=== PATIENT | male | born 1960 | race Caucasian/White ===

== ENCOUNTER 2020-09-29 09:35 | Inpatient (IN) ==
[2020-09-29] MEDS ORDERED: NS 0.9% 1000 ml BAG 1,000 ML IV.FLUID IV ONE (09:51)
[2020-09-29 11:00] LABS: ABS Lymphocytes 0.5 10^3/ul (1.0-4.8); ABS Monocytes 0.4 10^3/ul (0-0.8); ABS Neutrophils 5.2 10^3/ul (1.5-7.7); Hematocrit 38 % (42-52); Hemoglobin 12.6 g/dL (14.0-18.0); Lymphocyte % 8.3 %; Mean Corpuscular HGB Conc 33 g/dL (31-36); Mean Corpuscular Hemoglobin 29 pg (27-31); Mean Corpuscular Volume 86 fL (80-94); Mean Platelet Volume 7.4 fL (7.4-10.4); Platelet Count 196 10^3/uL (150-450); Red Blood Count 4.42 10^6 /uL (4.18-5.48); Red Cell Distribution Width 13 % (10-15); White Blood Count 6.1 10^3/uL (3.5-10.8)
[2020-09-29 11:09] LABS: Activated Partial Thrombo Time 29.2 seconds (26.0-38.0); INR 1.18 (0.82-1.09)
[2020-09-29 11:20] LABS: Albumin/Globulin Ratio 1.1 (1-3); BUN/Creatinine Ratio 18.3 (8-20); C Reactive Protein 91.04 mg/L (<8.01); Calcium 8.6 mg/dL (8.6-10.3); EGFR African American 99.6 (>60); EGFR Non-African American 82.3 (>60); Globulin 3.5 g/dL (2-4); Potassium 3.6 mmol/L (3.5-5.0); Total Bilirubin 0.5 mg/dL (0.2-1.0); Total Protein 7.5 g/dL (6.4-8.9)
[2020-09-29] MEDS ORDERED: NS 0.9% 1000 ml BAG 1,000 ML IV SCH (15:30)
[2020-09-29] MEDS ORDERED: Remdesivir 100 mg Vial 200 MG in NS 0.9% 250 ml 210 ML IV ONE (15:30)
[2020-09-29] MEDS: Enoxaparin 40 MG/0.4 ML SYR SUBCUT SCH (16:58)
[2020-09-29] MEDS: cefTRIAXone 1 gm/50 mL NS BAG 1 GM/50 ML BAG IVPB SCH (18:13)
[2020-09-29] MEDS: NS 0.9% 1000 ml BAG 1,000 ML IV SCH (20:30)
[2020-09-29] MEDS: Polyethylene Glycol 3350 17 GM PACKET PO SCH (20:37)
[2020-09-29] MEDS ORDERED: Metoclopramide 5 MG/ML VIAL (10 mg) IV SCH (21:00)
[2020-09-29] MEDS: Metoclopramide 5 MG/ML VIAL (10 mg) IV SCH (22:23)
[2020-09-29] MEDS: Pantoprazole VIAL 40 MG VIAL IV SCH (22:23)
[2020-09-30 01:11] LABS: Urine Appearance Cloudy; Urine Bilirubin Negative (Negative); Urine Blood Negative (Negative); Urine Color Yellow; Urine Glucose Negative (Negative); Urine Ketones 2+ (Negative); Urine Nitrite Negative (Negative); Urine Protein 2+(100 mg/dL) (Negative); Urine Specific Gravity 1.025 (1.010-1.030); Urine Urobilinogen Negative (Negative)
[2020-09-30 01:22] LABS: Urine Bacteria Absent (Absent); Urine Red Blood Cell Absent (Absent); Urine Squamous Epithelial Cell Present (Absent); Urine White Blood Cell Trace(0-5/hpf) (Absent)
[2020-09-30] MEDS: Metoclopramide 5 MG/ML VIAL (10 mg) IV SCH ×3 (04:23→19:56)
[2020-09-30 06:18] LABS: ABS Lymphocytes 0.6 10^3/ul (1.0-4.8); ABS Monocytes 0.4 10^3/ul (0-0.8); ABS Neutrophils 7.9 10^3/ul (1.5-7.7); Hematocrit 35 % (42-52); Hemoglobin 11.6 g/dL (14.0-18.0); Lymphocyte % 6.3 %; Mean Corpuscular HGB Conc 34 g/dL (31-36); Mean Corpuscular Hemoglobin 29 pg (27-31); Mean Corpuscular Volume 87 fL (80-94); Platelet Count 219 10^3/uL (150-450); Red Cell Distribution Width 13 % (10-15); White Blood Count 8.8 10^3/uL (3.5-10.8)
[2020-09-30 06:36] LABS: ALT 34 U/L (7-52); AST 59 U/L (13-39); Albumin 3.6 g/dL (3.2-5.2); Albumin/Globulin Ratio 1.1 (1-3); Alkaline Phosphatase 40 U/L (34-104); Anion Gap 10 mmol/L (2-11); BUN/Creatinine Ratio 13.5 (8-20); Blood Urea Nitrogen 13 mg/dL (6-24); CO2 Carbon Dioxide 25 mmol/L (22-32); Chloride 108 mmol/L (101-111); EGFR Non-African American 79.4 (>60); Globulin 3.2 g/dL (2-4); Glucose 88 mg/dL (70-100); Potassium 4.3 mmol/L (3.5-5.0); Sodium 143 mmol/L (135-145); Total Protein 6.8 g/dL (6.4-8.9)
[2020-09-30 07:06] LABS: Total Iron Binding Capacity 253 mcg/dL (250-450); Transferrin 181 mg/dL (203-362)
[2020-09-30 07:08] LABS: % Iron Saturation 8 % (15-55); Iron < 20 ug/dL (50-212); Unsaturated Iron Binding < 238 ug/dL
[2020-09-30 07:28] LABS: Ferritin 309.3 ng/mL (24-336)
[2020-09-30 07:31] LABS: Folate > 20.00 ng/mL (>3.99)
[2020-09-30 07:32] LABS: Vitamin B12 528 pg/mL (180-914)
[2020-09-30] MEDS: Polyethylene Glycol 3350 17 GM PACKET PO SCH ×2 (09:37→19:56)
[2020-09-30] MEDS: Pantoprazole VIAL 40 MG VIAL IV SCH (09:37)
[2020-09-30] MEDS: cefTRIAXone 1 gm/50 mL NS BAG 1 GM/50 ML BAG IVPB SCH (09:37)
[2020-09-30] MEDS: Linaclotide 290 mcg CAP (NF) PO SCH (09:48)
[2020-09-30] MEDS: Enoxaparin 40 MG/0.4 ML SYR SUBCUT SCH (14:35)
[2020-10-01] MEDS: NS 0.9% 1000 ml BAG 1,000 ML IV SCH (00:38)
[2020-10-01] MEDS: Linaclotide 290 mcg CAP (NF) PO SCH (08:43)
[2020-10-01] MEDS: Polyethylene Glycol 3350 17 GM PACKET PO SCH ×2 (08:44→21:25)
[2020-10-01] MEDS: Enoxaparin 40 MG/0.4 ML SYR SUBCUT SCH (15:04)
[2020-10-01] MEDS ORDERED: Magnesium CITRATE LIQ 300 ML BTL PO PRN (16:06)
[2020-10-02] MEDS: Polyethylene Glycol 3350 17 GM PACKET PO SCH ×2 (07:55→20:47)
[2020-10-02] MEDS: Linaclotide 290 mcg CAP (NF) PO SCH (07:55)
[2020-10-02] MEDS ORDERED: Lactated Ringers 500 ml BAG 250 ML IV ONE (11:30)
[2020-10-02 12:28] LABS: ABS Lymphocytes 0.7 10^3/ul (1.0-4.8); ABS Monocytes 0.3 10^3/ul (0-0.8); ABS Neutrophils 5.8 10^3/ul (1.5-7.7); Eosinophil % 0.3 %; Hematocrit 33 % (42-52); Hemoglobin 11.1 g/dL (14.0-18.0); Mean Corpuscular HGB Conc 33 g/dL (31-36); Mean Corpuscular Hemoglobin 29 pg (27-31); Mean Corpuscular Volume 86 fL (80-94); Mean Platelet Volume 6.7 fL (7.4-10.4); Platelet Count 264 10^3/uL (150-450); Red Blood Count 3.87 10^6 /uL (4.18-5.48); Red Cell Distribution Width 13 % (10-15); White Blood Count 6.8 10^3/uL (3.5-10.8)
[2020-10-02 12:42] LABS: Albumin 3.1 g/dL (3.2-5.2); BUN/Creatinine Ratio 10.1 (8-20); Calcium 8.1 mg/dL (8.6-10.3); EGFR African American 120.3 (>60); EGFR Non-African American 99.4 (>60); Potassium 3.7 mmol/L (3.5-5.0); Total Bilirubin 0.4 mg/dL (0.2-1.0); Total Protein 6.1 g/dL (6.4-8.9)
[2020-10-02] MEDS: Enoxaparin 40 MG/0.4 ML SYR SUBCUT SCH (14:55)
[2020-10-02] MEDS ORDERED: Albuterol/Ipratropium NEB.SOL (2.5/0.5 MG) 3 ML NEB.SOLN INH PRN (22:13)
[2020-10-02] MEDS ORDERED: Albuterol HFA INHALER 8 gm MDI INH PRN (23:48)
[2020-10-03] MEDS: Linaclotide 290 mcg CAP (NF) PO SCH (10:15)
[2020-10-03] MEDS: Polyethylene Glycol 3350 17 GM PACKET PO SCH ×2 (10:15→21:38)
[2020-10-03] MEDS: Enoxaparin 40 MG/0.4 ML SYR SUBCUT SCH (15:04)
[2020-10-04 06:48] LABS: BUN/Creatinine Ratio 10.8 (8-20); Blood Urea Nitrogen 8 mg/dL (6-24); CO2 Carbon Dioxide 25 mmol/L (22-32); Calcium 8.5 mg/dL (8.6-10.3); Chloride 107 mmol/L (101-111); EGFR African American 129.7 (>60); EGFR Non-African American 107.2 (>60); Glucose 90 mg/dL (70-100); Sodium 138 mmol/L (135-145)
[2020-10-04 06:49] LABS: Hematocrit 33 % (42-52); Mean Corpuscular HGB Conc 33 g/dL (31-36); Mean Corpuscular Hemoglobin 29 pg (27-31); Mean Corpuscular Volume 86 fL (80-94); Mean Platelet Volume 7.2 fL (7.4-10.4); Platelet Count 283 10^3/uL (150-450); Red Blood Count 3.87 10^6 /uL (4.18-5.48); Red Cell Distribution Width 13 % (10-15); White Blood Count 8.5 10^3/uL (3.5-10.8)
[2020-10-04 07:11] LABS: Anion Gap 6 mmol/L (2-11)
[2020-10-04] MEDS: Polyethylene Glycol 3350 17 GM PACKET PO SCH (09:30)
[2020-10-04] MEDS: Linaclotide 290 mcg CAP (NF) PO SCH (09:30)
[2020-10-04 12:50] VITALS: BP 87/55
== END 2020-10-04 15:30 | disposition home or self-care (01) | DRG 137 ==
LOC: ED 09:35 → MED 15:19
PROVIDERS: ADMIT Hospitalist; ATTEND Internal Medicine

== ENCOUNTER 2023-08-24 01:26 | Inpatient (IN) ==
[2023-08-24 02:52] LABS: ABS Eosinophils 0.1 10^3/uL (0.0-0.5); ABS Lymphocytes 1.3 10^3/uL (1.0-4.8); ABS Monocytes 0.3 10^3/uL (0.0-1.1); ABS Neutrophils 6.1 10^3/uL (1.5-7.6); Eosinophil % 1.3 %; Hematocrit 35.9 % (38-53); Hemoglobin 12.2 g/dL (13.2-16.3); Lymphocyte % 16.6 %; Mean Corpuscular Volume 85.2 fL (80-97); Mean Platelet Volume 6.6 fL (7.5-11.2); Platelet Count 259 10^3/uL (150-450); Red Blood Count 4.22 10^6/uL (4.06-5.63); Red Cell Distribution Width 13.1 % (12-17); White Blood Count 7.9 10^3/uL (3.6-10.2)
[2023-08-24] MEDS ORDERED: Lactated Ringers 1000 ml BAG 1,000 ML IV SCH (03:00)
[2023-08-24 03:10] LABS: Albumin 3.7 g/dL (3.2-5.2); Albumin/Globulin Ratio 1.5 (1-3); Calcium 8.2 mg/dL (8.6-10.3); Creatinine, Serum 0.8 mg/dL (0.67-1.17); Globulin 2.4 g/dL (2-4); Potassium 4.1 mmol/L (3.5-5.0); Total Bilirubin 0.3 mg/dL (0.2-1.0); Total Protein 6.1 g/dL (6.4-8.9); eGFR CKD-EPI 98.2 (>60)
[2023-08-24] MEDS ORDERED: Morphine 2 MG/ML SYRINGE IV PRN (10:12)
[2023-08-24] MEDS: Acetaminophen IV 1 GM/100ML 1,000 MG/100 ML BAG IV SCH ×3 (10:27→22:41)
[2023-08-24] MEDS: Lactated Ringers 1000 ml BAG 1,000 ML IV SCH ×2 (10:27→19:25)
[2023-08-24] MEDS ORDERED: Midazolam 10 mg/10 ml VIAL 1 mg/ml 10 ml VIAL (10 mg) ONE (11:34)
[2023-08-24] MEDS ORDERED: fentaNYL 100 mcg/2 ml 50 MCG/ML VIAL ONE (11:34)
[2023-08-24] MEDS ORDERED: PEG 3000 GI LAVAGE 1 GALLON PO ONE (14:30)
[2023-08-24] MEDS ORDERED: cefTRIAXone 1 gm/50 mL D5W 1 GM/50 ML BAG IV SCH (19:30)
[2023-08-24] MEDS: Linaclotide 290 mcg CAP (NF) PO SCH (21:59)
[2023-08-24] MEDS: cefTRIAXone 1 gm/50 mL D5W 1 GM/50 ML BAG IV SCH (23:03)
[2023-08-25] MEDS: Acetaminophen IV 1 GM/100ML 1,000 MG/100 ML BAG IV SCH ×3 (05:52→22:22)
[2023-08-25 08:01] LABS: ABS Lymphocytes 0.7 10^3/uL (1.0-4.8); ABS Monocytes 0.6 10^3/uL (0.0-1.1); ABS Neutrophils 6.2 10^3/uL (1.5-7.6); ABS Nucleated RBC 0.01 10^3/ul; Eosinophil % 0.2 %; Hematocrit 37.4 % (38-53); Hemoglobin 12.6 g/dL (13.2-16.3); Lymphocyte % 9.3 %; Mean Corpuscular Hemoglobin 28.9 pg (27-33); Mean Corpuscular Hgb Conc 33.7 g/dL (31-36); Mean Corpuscular Volume 85.7 fL (80-97); Mean Platelet Volume 6.7 fL (7.5-11.2); Nucleated Red Blood Cells % 0.2 %/100WBC (0.0-0.8); Platelet Count 247 10^3/uL (150-450); Red Blood Count 4.37 10^6/uL (4.06-5.63); Red Cell Distribution Width 13.1 % (12-17); White Blood Count 7.5 10^3/uL (3.6-10.2)
[2023-08-25 08:49] LABS: Calcium 8.7 mg/dL (8.6-10.3); Creatinine, Serum 0.87 mg/dL (0.67-1.17); Magnesium 1.8 mg/dL (1.9-2.7); Potassium 3.8 mmol/L (3.5-5.0); eGFR CKD-EPI 95.8 (>60)
[2023-08-25] MEDS: Linaclotide 290 mcg CAP (NF) PO SCH (11:21)
[2023-08-25] MEDS: Polyethylene Glycol 3350 17 GM PACKET PO SCH ×2 (12:47→22:59)
[2023-08-25] MEDS ORDERED: Enoxaparin 30 MG/0.3 ML SYR SUBCUT SCH (15:00)
[2023-08-25] MEDS: Magnesium Sulfate IV 1GM/100ML 1 GM/100 ML BAG IV ONE ×2 (15:39→18:10)
[2023-08-25] MEDS ORDERED: SMOG Enema (MgOH-NS-Gly-MinO) 330 ML ENEMA PR ONE ×2 (17:00)
[2023-08-25] MEDS: PTO:Linaclotide 290 mcg CAP (NF) PO SCH (22:29)
[2023-08-25] MEDS: cefTRIAXone 1 gm/50 mL D5W 1 GM/50 ML BAG IV SCH (22:47)
[2023-08-26] MEDS ORDERED: Lactated Ringers 1000 ml BAG 500 ML IV ONE ×2 (02:49→05:06)
[2023-08-26 03:25] LABS: ABS Lymphocytes 1.5 10^3/uL (1.0-4.8); ABS Monocytes 0.7 10^3/uL (0.0-1.1); ABS Neutrophils 4.6 10^3/uL (1.5-7.6); Eosinophil % 0.6 %; Hematocrit 38.3 % (38-53); Hemoglobin 12.9 g/dL (13.2-16.3); Lymphocyte % 22.1 %; Mean Corpuscular Hgb Conc 33.5 g/dL (31-36); Mean Corpuscular Volume 86.3 fL (80-97); Mean Platelet Volume 6.6 fL (7.5-11.2); Platelet Count 237 10^3/uL (150-450); Red Blood Count 4.44 10^6/uL (4.06-5.63); Red Cell Distribution Width 13.2 % (12-17); White Blood Count 6.9 10^3/uL (3.6-10.2)
[2023-08-26 03:41] LABS: Calcium 8.2 mg/dL (8.6-10.3); Creatinine, Serum 0.86 mg/dL (0.67-1.17); Potassium 4.2 mmol/L (3.5-5.0); eGFR CKD-EPI 96.1 (>60)
[2023-08-26] MEDS: Acetaminophen IV 1 GM/100ML 1,000 MG/100 ML BAG IV SCH (04:53)
[2023-08-26] MEDS: Polyethylene Glycol 3350 17 GM PACKET PO SCH ×2 (09:28→09:33)
[2023-08-26] MEDS: PTO:Linaclotide 290 mcg CAP (NF) PO SCH ×2 (09:28→09:33)
[2023-08-26 12:34] VITALS: BP 94/48
== END 2023-08-26 15:00 | disposition home or self-care (01) | DRG 391 ==
LOC: ED 01:26 → EDHOLD 04:19 → SUATTDRO 04:19 → MEDTELE 17:38
PROVIDERS: ADMIT Internal Medicine; ATTEND Internal Medicine